=== PATIENT | male | born 1990 | race African-American/Black ===

== ENCOUNTER 2017-07-18 18:50 | Emergency (ER) | payer MEDICAID ==
[~2017-07-18] VITALS: Ht 175.3 cm; Wt 81.6 kg
--- NOTE | 2017-07-18 18:50 | NUR ---
PT AMBULATES WITH STEADY GAIT TO CHAIR A AT THIS TIME WITH [place] [employer] OFFICER AT HIS SIDE.
[2017-07-18 18:51] VITALS: BP 137/75
--- NOTE | 2017-07-18 19:00 | NUR ---
26 YO M [employer] FOR PRE-BOOK. PT C/O LEFT ANKLE PAIN THAT HE INJURED ON MONDAY WHILE PLAYING BASKETBALL. PT REPORTS THAT HE WENT TO [place] AND GOT HIS ANKLE BIMAL-WRAPPED AND SENT HOME WITH IBUPROFEN. NO S/S OF APPARENT INJURY TO SIGHT NOTED AT THIS TIME. PT A&O X 4. [facility]CS 15. CMS INTACT. RR EVEN AND UNLABORED. LUNG SOUNDS CLEAR. PT TALKING AND JOKING WITH THE POLICE OFFICE THAT IS SITTING WITH HIM. ER MD NICOLE NOTIFIED. PT NEEDS MET. WILL CONTINUE TO MONITOR.
--- NOTE | 2017-07-18 19:17 | NUR ---
Pt report given to BHARATHI Rasheed. Transfer of care at this time.
--- NOTE | 2017-07-18 19:36 | NUR ---
PT SITTING IN CHAIR [employer] [place] [employer] AT CHAIRSIDE. WILL CONTINUE TO MONITOR.
--- NOTE | 2017-07-18 20:08 | NUR ---
Terrance raymond in ED - 07/18/[address] at [address] Acosta evaluating patient.
--- NOTE | 2017-07-18 20:12 | NUR ---
Dr. Acosta evaluating patient.
--- NOTE | 2017-07-18 20:32 | NUR ---
PT RETURN FROM RAD
[2017-07-18] MEDS ORDERED: IBUPROFEN 600 MG TAB PO ONE (20:35)
[2017-07-18 20:49] VITALS: BP 134/72
--- NOTE | 2017-07-18 20:50 | NUR ---
Patient discharged with v/s stable. Written and verbal after care instructions given and explained. Patient alert, oriented and verbalized understanding of instructions. Police with in custody. All questions addressed prior to discharge. ID band removed. Patient advised to follow up with PMD. Rx of IBUPROFEN given. Patient educated on indication of medication including possible reaction and side effects. Opportunity to ask questions provided and answered.
== END 2017-07-18 20:50 ==
LOC: MED 18:50 → EDSEX 18:50 → MED 20:50
DX: Z02.89 Encounter for other administrative examinations (principal)
CPT/HCPCS: 73630; 99284